=== PATIENT | female | born 1955 | race Caucasian/White ===

== ENCOUNTER 2018-10-13 12:26 | Emergency (ER) | payer OTHER ==
[~2018-10-13] VITALS: Ht 160 cm; Wt 65.0 kg
[~2018-10-13 12:26] MED LIST: ASPI325T17 PO; BIOT1CAP3 PO; CALC-229 PO; CYAN10005 PO; GABAPENTIN; HYDR-3240 PO; MELOXICAM PO; METOPROLOL PO; OMEG1CAP23 PO; TRAMADOL; TRAZ50TA66 PO; VICODIN
[2018-10-13 12:48] VITALS: BP 128/82
--- NOTE | 2018-10-13 14:46 | NUR ---
Patient/Caregiver given discharge instructions and they have confirmed that they understand the instructions. Patient ambulatory with steady gait.
== END 2018-10-13 14:47 | disposition home or self-care (01) ==
LOC: ED 13:02
DX: S09.8XXA Other specified injuries of head, initial encounter (principal); W01.0XXA Fall on same level from slipping, tripping and stumbling without subsequent striking against object, initial encounter; Y93.01 Activity, walking, marching and hiking; Y92.009 Unspecified place in unspecified non-institutional (private) residence as the place of occurrence of the external cause; Y99.8 Other external cause status
CPT/HCPCS: 70450; 99284

== ENCOUNTER 2019-10-21 10:25 | Outpatient (CLI) | payer MEDICARE ==
[~2019-10-21 10:25] MED LIST changes: +CYAN-27 PO; -CYAN10005 PO
== END 2019-10-21 23:59 | disposition home or self-care (01) ==
LOC: CFH 10:25
PROVIDERS: ATTEND Family Medicine
DX: M81.0 Age-related osteoporosis without current pathological fracture (principal); R93.7 Abnormal findings on diagnostic imaging of other parts of musculoskeletal system
CPT/HCPCS: 77080